=== PATIENT | male | born 1945 | race Caucasian/White ===

== ENCOUNTER → 2018-07-25 | Outpatient (CLI) | payer OTHER ==
[~2018-07-25] VITALS: Ht 182.9 cm; Wt 113.4 kg
[~2018-07-25] MED LIST: ASPIRIN325 PO; CYTO RALA30 GM PO; EXCEDRIN CAPLE1 EACH PO; LUMIGAN2.5 M1 OPHTHALMIC; NORVASC5 MG PO; VITAMIN D1000 UNI1 PO
--- NOTE | ~2018-07-25 | P ---
[facility] [place] [address] PROCEDURE REPORT Name: ORI NUNEZ OCTAVIO Room #: REG EARL BlasJaquelineFrankie#: [id number] Admission: 07/25/18 Attend Phys: Marcus Oglesby Discharge: Date of : 49 Report #: [id number] THIS REPORT FOR: //name// CC: Marcus Luciano DATE OF SERVICE: 07/25/2018 PROCEDURE PERFORMED: Colonoscopy with biopsies. HISTORY OF PRESENT ILLNESS: The patient is a 73-year-old male with a history of colon polyps, here for routine 5-year followup. Denies any symptoms. No family history of colon cancer. DESCRIPTION OF PROCEDURE: The risks and benefits of the procedure were explained to the patient, those risks including but not limited to bleeding, perforation and the risk of sedation. He understood these risks and gave informed consent. Sedation was given using propofol per anesthesia. Next, a digital rectal exam was initially performed, which was normal. Next, using a standard Olympus colonoscope, the scope was placed in the patient's anus and advanced under direct vision to the cecum. The overall prep was good. In the cecum, there was a 5-mm sessile polyp. This was removed with cold forceps, otherwise normal. The ileocecal valve was normal. Ascending and transverse colon were normal. In the descending and sigmoid colon, multiple diverticula were noted. No evidence of inflammation, otherwise normal. The rectal mucosa was normal. On retroflexion, no abnormalities were noted. External hemorrhoids were noted. The scope was withdrawn and the procedure terminated. The patient tolerated the procedure well. IMPRESSION: 1. Small colonic polyp. 2. Left-sided diverticulosis. 3. External hemorrhoids. 4. Otherwise, normal colonoscopy. RECOMMENDATIONS: 1. Await biopsy results. 2. If polyp is hyperplastic, repeat in 10 years. If adenomatous polyp, repeat in 5 years. Thank you for allowing me to participate in his care. By: [id number] Marcus Garcia MD /nt
--- NOTE | 2018-07-26 16:06 | PATH ---
[facility] [address] [place] [address] PATHOLOGY RPT PROCEDURE Name: MARIELENAERICKDEBORATERRYRUSSELL GENE Room #: REG EARL Ash.#: [id number] Admission: 07/25/18 Date of : 49 Discharge: Report #: [id number] Path Case #: [id number] [facility] Accession Number: [id number] . 01 Material submitted: . BX CECAL POLYP . 01 Clinical history: . Pre-OP DX: Hx polyps Post-OP DX: Colon polyp, diverticulosis, hemorrhoid . 02 Diagnosis: Polyp, ceca; polyp, endoscopic biopsy: - Tubular adenoma. - Negative for high-grade dysplasia. (IUV:pit 07/26/2018) QTP/07/26/2018 . 02 Electronically signed: . Nyla Mejia MD, Pathologist NPI- [id number] . 01 Gross description: . Received in formalin labeled "McClusky, Russell, BX cecal polyp," are 2 segments of rhodes soft tissue measuring 0.8 x 0.3 x 0.2 cm in aggregate dimensions and ranging from 0.3 to 0.5 cm in maximum dimension. The specimen is submitted entirely in cassette A1. (TSD; 07/25/2018) TOB/TOB . 02 Pathologist provided ICD-10: D12.0 . 02 CPT . 880098 Specimen Comment: A courtesy copy of this report has been sent to Specimen Comment: [phone], . Specimen Comment: Report sent to / DR MCGILL Performed at: [address], [place] [id number] MD Triston Pete MD Phone: [phone] Performed at: [address], [place] [id number] MD Nyla Mejia MD Phone: [phone]
== END | disposition home or self-care (01) ==
LOC: GI 08:20
DX: Z12.11 Encounter for screening for malignant neoplasm of colon (principal); Z86.010 Personal history of colon polyps; K57.30 Diverticulosis of large intestine without perforation or abscess without bleeding; K64.4 Residual hemorrhoidal skin tags; D12.0 Benign neoplasm of cecum; Z68.33 Body mass index [BMI] 33.0-33.9, adult; F17.210 Nicotine dependence, cigarettes, uncomplicated; I10 Essential (primary) hypertension; R00.1 Bradycardia, unspecified; Z98.890 Other specified postprocedural states
CPT/HCPCS: 62110; 62900